=== PATIENT | female | born 1955 | race American Indian/Alaskan Native ===

== ENCOUNTER 2018-05-10 07:08 | Day surgery (SDC) | payer OTHER ==
[2018-05-10] MEDS: Lactated Ringers 1,000 ML IV SCH (07:55)
[2018-05-10] MEDS ORDERED: Propofol 200 MG/20 ML SDV ONE (07:59)
[2018-05-10] MEDS ORDERED: fentaNYL 100 MCG/2 ML SDV ONE (07:59)
[2018-05-10 09:59] VITALS: BP 154/79
--- NOTE | 2018-05-10 10:29 | OR ---
DATE OF PROCEDURE: 05/10/2018 SURGEON: Gene White MD PREOPERATIVE DIAGNOSIS: "Heartburn." POSTOPERATIVE DIAGNOSIS: Gastritis, gastroesophageal reflux disease. PROCEDURES: Esophagogastroduodenoscopy with antral biopsies for CLOtest, sent for pathology to look for Helicobacter pylori, biopsy of gastroesophageal junction. ANESTHESIA: IV anesthesia with monitored anesthesia care. INDICATION: This 63-year-old [place] female is referred for upper endoscopy because of epigastric pain. She says it is really heartburn. I counseled her for upper endoscopy with possible biopsy including risks and alternatives and she gave her informed consent to proceed. DESCRIPTION OF PROCEDURE: The patient was placed in the left lateral decubitus position. IV anesthesia was administered by the Anesthesia Service. Time-out was held. The flexible video Olympus upper endoscope was passed through her mouth down her esophagus, and into her stomach. The scope was easily passed through the pylorus into the duodenum reaching its third portion. En route, in the stomach, we encountered a lot of bile, which we aspirated free. Once the third portion of the duodenum was reached, the scope was slowly withdrawn examining the mucosa. The duodenal mucosa appeared unremarkable. The scope was brought back through the pylorus into the antrum. There was evidence of gastritis present. The scope was retroflexed. The most proximal stomach appeared unremarkable except for some mild gastritis here. The main body of the stomach had fairly intense gastritis. We saw what appeared to be some early ulcers trying to form. Antral biopsies for CLOtest sent for pathology to look for Helicobacter pylori were obtained. The scope was then brought up through the GE junction. The GE junction had a Z-line that was not straight, suggestive of gastroesophageal reflux disease. We obtained multiple totalling at least 6 biopsies of the gastroesophageal junction. The scope was then brought proximally up through remainder of the esophagus, which otherwise appeared unremarkable and it was removed. She tolerated the procedure well. Gene White MD /[id number]
== END 2018-05-10 10:43 | disposition home or self-care (01) ==
LOC: JP.SDS 07:08
PROVIDERS: ATTEND Surgery
DX: K29.00 Acute gastritis without bleeding (principal); K29.50 Unspecified chronic gastritis without bleeding; K20.0 Eosinophilic esophagitis; K21.9 Gastro-esophageal reflux disease without esophagitis; Z88.1 Allergy status to other antibiotic agents; Z88.5 Allergy status to narcotic agent
CPT/HCPCS: 43239; 87081; 88305; 88342; J2704; J3010; J7120

== ENCOUNTER 2021-11-19 12:38 | Inpatient (IN) | payer OTHER ==
[2021-11-19 15:08] LABS: CORONAVIRUS COVID-19 NAA NEGATIVE (NEGATIVE)
[2021-11-19] MEDS ORDERED: Sodium Chloride 0.9% 1,000 ML IV SCH (17:45)
[2021-11-19] MEDS ORDERED: Polyethylene Glycol 3350 Powder 17 GM Packet PO PRN (18:30)
[2021-11-19] MEDS ORDERED: Sodium Chloride 0.9% 10 ML Syringe FLUSH PRN (18:30)
[2021-11-19] MEDS ORDERED: Nicotine Polacrilex 2 MG Gum CHEW PRN (18:48)
[2021-11-19] MEDS: Sodium Chloride 0.9% 1,000 ML IV SCH (18:57)
[2021-11-19] MEDS: Nicotine 21 MG/24 Hr Patch TRDERM SCH (20:32)
[2021-11-20] MEDS: Sodium Chloride 0.9% 1,000 ML IV SCH ×2 (04:23→10:54)
[2021-11-20] MEDS ORDERED: diphenhydrAMINE 25 MG Cap PO PRN (04:52)
[2021-11-20] MEDS: Nicotine 21 MG/24 Hr Patch TRDERM SCH (09:03)
[2021-11-20] MEDS ORDERED: Sodium Chloride 0.9% 1,000 ML IV SCH (11:30)
[2021-11-20] MEDS: guaiFENesin 100 MG/5 ML Soln 10 ML UD Cup PO PRN ×2 (11:34→21:21)
[2021-11-20] MEDS: traMADol 50 MG Tab PO PRN (11:34)
[2021-11-20] MEDS ORDERED: Potassium Chloride 20 MEQ Tab.ER PO ONE (17:12)
[2021-11-21] MEDS ORDERED: Sodium Chloride 0.9% 1,000 ML IV SCH (05:20)
[2021-11-21] MEDS: Nicotine 21 MG/24 Hr Patch TRDERM SCH (08:39)
[2021-11-21] MEDS: guaiFENesin 100 MG/5 ML Soln 10 ML UD Cup PO PRN ×2 (11:05→19:35)
[2021-11-21] MEDS: traMADol 50 MG Tab PO PRN (11:48)
[2021-11-22] MEDS: guaiFENesin 100 MG/5 ML Soln 10 ML UD Cup PO PRN (03:50)
[2021-11-22] MEDS ORDERED: Potassium Chloride 20 MEQ Tab.ER PO ONE (08:20)
[2021-11-22] MEDS: Nicotine 21 MG/24 Hr Patch TRDERM SCH (08:21)
[2021-11-22 10:17] LABS: HBSAG SCREEN Negative (Negative); HEP A AB, IGM Negative (Negative); HEP B CORE AB, IGM Negative (Negative); HEP C VIRUS AB 0.1 s/co ratio (0.0-0.9)
[2021-11-22 12:14] VITALS: BP 152/73; PULSE 73
[2021-11-22] MEDS: traMADol 50 MG Tab PO PRN (12:18)
== END 2021-11-22 13:15 | disposition home or self-care (01) | DRG 866 ==
LOC: JP.ED 12:38 → JP.MS 17:37
PROVIDERS: ADMIT Hospitalist; ATTEND Internal Medicine
DX: J10.89 Influenza due to other identified influenza virus with other manifestations (principal); R79.89 Other specified abnormal findings of blood chemistry; N19 Unspecified kidney failure; N17.9 Acute kidney failure, unspecified; B17.9 Acute viral hepatitis, unspecified; E87.2 Acidosis; H54.7 Unspecified visual loss; Z20.822 Contact with and (suspected) exposure to COVID-19; K21.9 Gastro-esophageal reflux disease without esophagitis; M54.9 Dorsalgia, unspecified; F17.210 Nicotine dependence, cigarettes, uncomplicated; G89.29 Other chronic pain; M81.0 Age-related osteoporosis without current pathological fracture; Z86.16 Personal history of COVID-19; Z88.5 Allergy status to narcotic agent; Z88.8 Allergy status to other drugs, medicaments and biological substances; Z79.82 Long term (current) use of aspirin; Z79.899 Other long term (current) drug therapy
CPT/HCPCS: 0241U; 36415; 71046; 71046-26; 74176; 80048; 80053; 80074; 80143; 80305-QW; 81001; 83605; 83735; 85025; 85610; 86140; 86644; 86645; 99222; 99231; 99232; 99238; 99284; 99285-25; A9270-GY; J7030